=== PATIENT | female | born 1955 | race Caucasian/White ===

== ENCOUNTER 2017-05-02 11:44 | Emergency (ER) | payer MEDICAID ==
--- NOTE | 2017-05-02 12:09 | ED PDOC ---
Arrival/HPI - General Time Seen by Provider: 05/02/17 12:06 Historian: Patient - History of Present Illness Narrative History of Present Illness (Text): 05/02/17 12:03 A 61 year old female, with no significant past medical history, presents to the emergency department complaining of acute right flank pain radiating to right leg. Patient reports also experiencing dysuria for 3 days. She has hx of abdominal hernia repair, but denies abdominal pain, nausea/vomiting, diarrhea/ constipation. Denies of any fever, vaginal bleeding, vaginal discharge, hematuria, or any other complaints. PMD: Dr. Akbar Pedro Symptom Onset: Sudden Symptom Course: Unchanged Past Medical History - Provider Review Nursing Documentation Reviewed: Yes Family/Social History - Physician Review Nursing Documentation Reviewed: Yes Family/Social History: No Known Family HX Allergies/Home Meds Allergies/Adverse Reactions: Allergies No Known Allergies Allergy (Unverified 05/02/17 12:07) Home Medications: Home Meds Medication Instructions Recorded Confirmed Atorvastatin [Lipitor] 10 mg PO DIN 05/02/17 05/02/17 Ferrous Sulfate [Feosol] 325 mg PO BID 05/02/17 05/02/17 Losartan/Hydrochlorothiazide 1 each PO DAILY 05/02/17 05/02/17 [Losartan-Hctz 100-12.5 mg Tab] Verapamil [Verapamil HCl] 240 mg PO DAILY 05/02/17 05/02/17 Review of Systems - Physician Review All systems were reviewed & negative as marked: Yes - Review of Systems Constitutional: absent: Fevers Eyes: absent: Vision Changes Respiratory: absent: SOB, Cough, Sputum, Wheezing Cardiovascular: absent: Chest Pain Gastrointestinal: absent: Abdominal Pain, Constipation, Diarrhea, Nausea, Vomiting Genitourinary Female: Dysuria. absent: Hematuria, Vaginal Bleeding, Vaginal Discharge Musculoskeletal: Back Pain, Other (acute right flank pain radiating to right leg ) Skin: absent: Rash Neurological: absent: Headache, Dizziness, Focal Weakness, Gait Changes, Speech Changes, Facial Droop, Disequilibrium Physical Exam Vital Signs Temp Pulse Resp BP Pulse Ox 05/02/17 12:16 97.9 F 64 18 144/95 H 98 Temperature: Afebrile Blood Pressure: Normal Pulse: Regular Respiratory Rate: Normal Appearance: Positive for: Well-Appearing, Non-Toxic, Comfortable Pain Distress: None Mental Status: Positive for: Alert and Oriented X 3 - Systems Exam Head: Present: Atraumatic, Normocephalic Pupils: Present: PERRL Extroacular Muscles: Present: EOMI Conjunctiva: Present: Normal Mouth: Present: Moist Mucous Membranes Neck: Present: Normal Range of Motion. No: MIDLINE TENDERNESS, Paraspinal Tenderness Respiratory/Chest: Present: Clear to Auscultation, Good Air Exchange. No: Respiratory Distress, Accessory Muscle Use Cardiovascular: Present: Regular Rate and Rhythm, Normal S1, S2. No: Murmurs Abdomen: Present: Normal Bowel Sounds. No: Tenderness, Distention, Peritoneal Signs Back: No: CVA Tenderness, Paraspinal Tenderness, Pain with Leg Raise, Other (no muscle spasms) Upper Extremity: Present: Normal Inspection Lower Extremity: Present: Normal Inspection Neurological: Present: GCS=15, CN II-XII Intact, Speech Normal, Gait Normal Skin: No: Rashes Psychiatric: Present: Alert, Oriented x 3 Medical Decision Making ED Course and Treatment: 05/02/17 12:07 Impression: 61 year old female with acute right flank pain radiating to right leg. Neurologically intact. Ambulating around the ED without issue. No tenderness. No rash. Plan: -- Abd/Pelvis CT -- Labs -- Urinalysis -- Toradol -- Reassess and disposition Progress Notes: 05/02/17 13:06 Spoke to patient's son who is MD and he reports that mother has significant anxiety and reported pain in R back that was more consistent with radiculopathy. Agrees with current mgmt. 05/02/17 13:42 Labs have been reviewed to be normal, awaiting Urinalysis. 05/02/2017 13:35 Abd/Pelvis CT IMPRESSION: 1. No radiodense urolithiasis, obstructive uropathy or perinuephric reaction bilaterally. 2. Further evaluation abdominal pelvis is limited due to lack of oral and intravenous contract administration. No definite acute abdominal findings are appreciable this time. Recurrent paraumbilical herna to left lateral margins of prior ventral hernia repair mesh. 3. Non acute sigmoid diverticular changes again evident. 4. Prior cholecystectomy. 5. Prior hysterectomy. Dictator: Sha Frankel MD 05/02/17 13:53 Ua negative. Patient feels better and currently denies pain. She is ambulating around the ED without issue. She has no weakness, numbness, tingling , bladder or bowel incontinence. She is aware that there are no acute changes to her CT and will follow-up with PMD for further evaluation of back pain. - Lab Interpretations Lab Results: 05/02/17 13:11 05/02/17 13:11 Lab Results 05/02/17 13:44: Urine Color Yellow, Urine Appearance Clear, Urine pH 6.5, Ur Specific [place] 1.010, Urine Protein Negative, Urine Glucose (UA) Negative, Urine Ketones Negative, Urine Blood Negative, Urine Nitrate Negative, Urine Bilirubin Negative, Urine Urobilinogen 0.2, Ur Leukocyte Esterase Negative 05/02/17 13:11: WBC 4.0 L, RBC 4.29, Hgb 12.5, Hct 37.2, MCV 86.7, MCH 29.1, MCHC 33.6, RDW 13.9, Plt Count 307, MPV 10.5, Gran % 74.2 H, Lymph % (Auto) 20.1 L, Reeves % (Auto) 5.0, Eos % (Auto) 0.2 L, Baso % (Auto) 0.5, Gran # 2.98, Lymph # 0.8 L, Reeves # 0.2, Eos # 0.0, Baso # 0.02 05/02/17 13:11: Sodium 138, Potassium 4.3, Chloride 99, Carbon Dioxide 28, Anion Gap 16, BUN 15, Creatinine 0.8, Est GFR ( Amer) > 60, Est GFR (Non- Af Amer) > 60, Random Glucose 117 H, Calcium 10.1, Total Bilirubin 0.9, AST 40 H , ALT 50, Alkaline Phosphatase 82, Total Protein 8.3, Albumin 4.2, Globulin 4.1 , Albumin/Globulin Ratio 1.0 L I have reviewed the lab results: Yes - RAD Interpretation Radiology Orders: 05/02/17 12:07 ABD & PELVIS W/O PO OR IV CONT [CT] Stat - Medication Orders Current Medication Orders: Discontinued Medications Ketorolac Tromethamine (Toradol) 30 mg IVP STAT STA Stop: 05/02/17 12:08 Last Admin: 05/02/17 13:16 Dose: 30 mg MAR Pain Assessment Document 05/02/17 13:16 MR (Rec: 05/02/17 13:17 MR [facility] [place]-[id number]) Pain Reassessment Is this a pain reassessment? Yes Sleep Is patient sleeping during reassessment? No Presence of Pain Presence of Pain Yes Pain Scale Used Pain Scale Used Numeric Location Left, Right or Bilateral Right Pain Location Body Site Abdomen Back Description Description Constant Intensity of Pain at present 8 Pain Behavior Moaning Aggravating Factors Changing Position Exercise/Activity Alleviating Factors/Management Medication Techniques Alleviating Factors Medication IVP Administration Document 05/02/17 13:16 MR (Rec: 05/02/17 13:17 MR [facility] [place]-[id number]) Charges for Administration # of IVP Administrations 1 - Scribe Statement The provider has reviewed the documentation as recorded by the Kaitlynn Ordoñez Provider Scribe Attestation: All medical record entries made by the Scribe were at my direction and personally dictated by me. I have reviewed the chart and agree that the record accurately reflects my personal performance of the history, physical exam, medical decision making, and the department course for this patient. I have also personally directed, reviewed, and agree with the discharge instructions and disposition. Disposition/Present on Arrival - Present on Arrival Any Indicators Present on Arrival: No - Disposition Have Diagnosis and Disposition been Completed?: Yes Diagnosis: Back pain Disposition: HOME/ ROUTINE Disposition Time: 13:54 Patient Plan: Discharge Patient Problems: Current Active Problems Problem Status Onset Back pain Acute Condition: GOOD Discharge Instructions (ExitCare): Acute Low Back Pain (ED) Additional Instructions: Follow-up with PMD within 2 days. Return to ED if condition worsens. Motrin for mild pain. Flexeril for severe pain. Prescriptions: Cyclobenzaprine [Cyclobenzaprine HCl] 10 mg PO TID PRN #10 tab PRN Reason: Pain, Moderate (4-7) Referrals: Akbar Pedro MD [Primary Care Provider] - Follow up with primary
[2017-05-02 12:20] VITALS: TEMP 97.9
[2017-05-02 13:25] LABS: BASO # 0.02 K/mm3 (0.0-2.0); BASO % 0.5 % (0.0-3.0); EOS % 0.2 % (1.5-5.0); GRAN # 2.98 (1.4-6.5); GRAN % 74.2 % (50.0-68.0); HEMATOCRIT 37.2 % (36.0-48.0); LYMPH # 0.8 (1.2-3.4); LYMPH % 20.1 % (22.0-35.0); MEAN CELL VOLUME 86.7 fl (80.0-105.0); MEAN CORPUSCULAR HEMOGLOBIN 29.1 pg (25.0-35.0); MEAN CORPUSCULAR HGB CONC 33.6 g/dl (31.0-37.0); MEAN PLATELET VOLUME 10.5 fl (7.0-11.0); MONO # 0.2 (0.1-0.6); RED CELL DISTRIBUTION WIDTH 13.9 % (11.5-14.5)
--- NOTE | 2017-05-02 13:37 | CT ---
PROCEDURE: CT Abdomen and Pelvis without intravenous contrast HISTORY: R flank pain COMPARISON: None. TECHNIQUE: Technique. Contrast Dose: Radiation dose: Total exam DLP = mGy-cm. This CT exam was performed using one or more of the following dose reduction techniques: Automated exposure control, adjustment of the mA and/or kV according to patient size, and/or use of iterative reconstruction technique. FINDINGS: LOWER THORAX: Small hiatal hernia is identified. LIVER: Unremarkable. No gross lesion or ductal dilatation. GALLBLADDER AND BILE DUCTS: Prior cholecystectomy again evident. PANCREAS: Unremarkable. No gross lesion or ductal dilatation. SPLEEN: Unremarkable. ADRENALS: Unremarkable. No mass. KIDNEYS AND URETERS: No obstructive uropathy bilaterally or radiodense urolithiasis. No perinephric reaction bilaterally. VASCULATURE: Unremarkable. No aortic aneurysm. BOWEL: Nonacute sigmoid diverticular changes again evident. . No obstruction. No gross mural thickening. APPENDIX: Unremarkable. Normal appendix. PERITONEUM: Prior apparent right paraumbilical hernia repair is reiterated with likely recurrent hernia lateral to the left lateral margins of the match with the hernia not containing a short segment of transverse colon which does not appear to be incarcerated. No free fluid. No free air. LYMPH NODES: Unremarkable. No enlarged lymph nodes. BLADDER: Unremarkable. REPRODUCTIVE: Prior hysterectomy evident. BONES: No acute fracture. OTHER FINDINGS: None. IMPRESSION: 1. No radiodense urolithiasis, obstructive uropathy or perinephric reaction bilaterally. 2. Further evaluation abdominal pelvis is limited due to lack of oral and intravenous contrast administration. No definite acute abdominal findings are appreciable this time. Recurrent paraumbilical hernia to left lateral margins of prior ventral hernia repair mesh. 3. Nonacute sigmoid diverticular changes again evident. 4. Prior cholecystectomy. 5. Prior hysterectomy.
[2017-05-02 13:38] LABS: ALKALINE PHOSPHATASE 82 U/L (38-126); ALT/SGPT 50 U/L (7-56); AST/SGOT 40 U/L (14-36); BILIRUBIN,TOTAL 0.9 mg/dL (0.2-1.3); BLOOD UREA NITROGEN 15 mg/dL (7-21); CALCIUM 10.1 mg/dL (8.4-10.5); CARBON DIOXIDE 28 mmol/L (21-33); CHLORIDE 99 mmol/L (98-107); GFR AFRICAN-AMERICAN > 60; GLUCOSE,RANDOM 117 mg/dL (70-110); POTASSIUM 4.3 mmol/L (3.6-5.0); SODIUM 138 mmol/L (132-148); TOTAL PROTEIN 8.3 g/dL (5.8-8.3)
[2017-05-02 13:50] LABS: PH,URINE 6.5 (4.7-8.0); URINE BILIRUBIN NEGATIVE (NEGATIVE); URINE BLOOD NEGATIVE (NEGATIVE); URINE GLUCOSE (UA) NEGATIVE (NEGATIVE); URINE KETONE NEGATIVE (NEGATIVE); URINE LEUKOCYTE ESTERASE NEGATIVE Leu/uL (NEGATIVE); URINE PROTEIN NEGATIVE mg/dL (<30 mg/dL); URINE UROBILINOGEN 0.2 E.U./dL (<1 E.U./dL)
[2017-05-02 13:51] LABS: URINE APPEARANCE CLEAR (CLEAR); URINE COLOR YELLOW (YELLOW)
[2017-05-02 14:07] VITALS: BP 149/85; PULSE 58; RESP 17; O2SAT 96
== END 2017-05-02 14:08 | disposition home or self-care (01) ==
LOC: ED 11:44
DX: M54.5 Low back pain (principal)
CPT/HCPCS: 74176; 80053; 81003; 85025; 96374; 99284; J1885